=== PATIENT | male | born 1995 | race Caucasian/White ===

== ENCOUNTER 2020-07-14 09:39 | Emergency (ER) | payer OTHER, SELFPAY ==
[2020-07-14] VITALS (9 sets, daily range): BP systolic 109–133; BP diastolic 57–73; PULSE 82–99; RESP 18; TEMP 36.8; O2SAT 97–100; BMI 28.4
--- NOTE | 2020-07-14 10:22 | ED.MALEGU ---
HPI - Male Genitourinary General Chief complaint: Urogenital-Male Stated complaint: abscess right kidney sent for urology Time Seen by Provider: 07/14/20 10:21 Source: patient and EMS Mode of arrival: EMS Limitations: no limitations History of Present Illness HPI Narrative: This is a 24-year-old male comes to the emergency department with complaint of abscess to the right kidney. Patient states he was diagnosed approximately 6 weeks ago. He was seen at [facility]. Patient states that he was having significant pain in the right flank abdomen then he was on IV antibiotics and by his description likely boarding in the emergency department for several days. He states they did not take him to the OR or drainage by IR. Patient was discharged home on oral antibiotics which he states he was taking regularly until he had repeat CT scan 2 or 3 weeks ago. He states that there had been no change in the size and he has become more lax in his compliance with his antibiotic. He felt chilled and diaphoretic overnight. He has had increasing pain over the last 24 hours. He has had occasional intermittent discomfort in the flank right lower quadrant but not as significant as today. Today's pain feels much more similar to his prior discomfort when he was initially hospitalized at the [facility]. He has been having bowel movements he has not appreciated any melena or hematochezia. He has not pursued any dysuria, since urgency or incontinence. Patient denies other medical issues besides migraines he denies any prior surgeries. He states he had redness and felt like he was burning all over after vancomycin in the hospital, possible red man syndome. He states he has 1 other allergy to medication but cannot recall what it is. He did see a urologist at [facility] the last 2-3 weeks after his repeat imaging, he states he had a bladder scan and was supposed to follow-up for a ultrasound in the office. He is unsure of the urologist but thinks it may have Dr. Young. Related Data Home Medications Medication Instructions Recorded Confirmed omeprazole 20 mg PO DAILY 07/14/20 07/14/20 sumatriptan succinate 25 mg PO Q2-4H PRN 07/14/20 07/14/20 Previous Rx's Medication Instructions Recorded meloxicam [Mobic] 7.5 mg PO DAILY PRN #20 tab 07/14/20 Allergies Allergy/AdvReac Type Severity Reaction Status Date / Time vancomycin Allergy Redness of Verified 07/14/20 09:50 Skin Review of Systems Review of Systems ROS Unobtainable: All systems reviewed & are unremarkable except as noted in HPI and below Patient History Medical History (Updated 07/14/20 @ 13:35 by Leda Amaya DO) Renal abscess Social History Smoking Status: Never smoker Smoking Status: Never smoker alcohol intake frequency: a few times a month Alcohol type: beer Substance Use Type: does not use Exam Narrative Exam Narrative: GENERAL: Alert and oriented x three, well-nourished male in mild distress patient appears to not be comfortable. HEENT: Head normocephalic, atraumatic, EOMI, pupils reactive, face symmetric, moist mucous membranes NECK: Supple, full range of motion CARDIOVASCULAR: Regular rate and rhythm without murmurs, rubs or gallops. RESPIRATORY: Breath sounds equal bilaterally, no wheezes rales or rhonchi. ABDOMEN: Soft, moderate right lower quadrant tenderness. Normoactive bowel sounds all 4 quadrants. No guarding or rebound, rigidity, no mass : No CVA tenderness EXTREMITIES: Normal range of motion, no clubbing or edema. Neurovascularly intact NEUROLOGICAL: Cranial nerves II through XII grossly intact. Moving all extremities SKIN: Warm, dry, no petechiae, no rashes or lesions. Initial Vital Signs Initial Vital Signs: Vital Signs Temperature 98.3 F 07/14/20 09:40 Pulse Rate 99 H 07/14/20 09:40 Respiratory Rate 18 07/14/20 09:40 Blood Pressure 133/67 07/14/20 09:40 Pulse Oximetry 99 07/14/20 09:40 Course Orders Ordered: ED Orders 07/14/20 10:55 Blood Culture Stat 07/14/20 11:12 CT abdomen pelvis w con Stat 07/14/20 11:15 Urinalysis and Microscopic Stat Urine Culture Stat Discontinued Medications Sodium Chloride (Normal Saline 0.9%) 1,000 mls @ 1,000 mls/hr IV BOLUS ONE Stop: 07/14/20 11:34 Last Infusion: 07/14/20 12:02 Dose: 0 mls/hr Documented by: Admin: 07/14/20 11:11 Dose: 1,000 mls/hr Documented by: DINO Ketorolac Tromethamine (Ketorolac 60 Mg/2 Ml Vial) 15 mg IV NOW ONE Stop: 07/14/20 10:36 Last Admin: 07/14/20 11:12 Dose: 15 mg Documented by: DINO Ondansetron HCl (Ondansetron 4 Mg/2 Ml Inj) 4 mg IV Q4HR PRN PRN Reason: Nausea And Vomiting Last Admin: 07/14/20 11:12 Dose: 4 mg Documented by: DINO Reevaluation(s) Reevaluation #1: Patient's pain had improved after Toradol. Discussed his findings. Earlier. Patient's CT imaging we reviewed that he has had some improvement in the interval. Urology recommendations. He still has Bactrim and encouraged to take that on a regular basis. He was contacted he was supposed to have his MRI scheduled in November but that was prior to my discussion with Urology group and we discussed they may be able to push this forward. Patient was encouraged to return if he has worsening symptoms or toxic symptoms. Cultures are pending and discussed if blood cultures are positive he would be contacted or if there were signs of resistance in his urine culture. Time: 13:39 Consultations Consultation #1: Urology, Mariana LOVELL. Follow up with urology. They are planning for MRI outpatient. Continue bactrim as prescribed. Watch for toxic symptoms. Can make an appointment to follow up. Time: 13:30 Vital Signs Vital signs: Vital Signs - 8 hr 07/14/20 11:30 07/14/20 12:00 07/14/20 12:30 Pulse Rate 83 82 84 Blood Pressure 119/58 L 109/64 115/70 Pulse Oximetry 97 97 97 07/14/20 13:00 07/14/20 13:30 Pulse Rate 82 86 Blood Pressure 112/68 114/68 Pulse Oximetry 97 98 MDM - Male Genitourinary Lab Data Attestation: I reviewed the patient's lab results. Result diagrams: 07/14/20 09:45 07/14/20 09:45 Labs: Lab Results 07/14/20 07/14/20 07/14/20 Range/Units 09:45 09:45 09:45 WBC 10.9 (4.5-11.0) X10^3/uL RBC 4.64 (4.5-5.9) X10^6/uL Hgb 14.7 (13.5-17.5) g/dL Hct 42.2 (41-53) % MCV 91.0 (80-100) fL MCH 31.7 (26-34) PG MCHC 34.8 (30-36) % RDW 13.8 (11.6-14.8) % Plt Count 239 (150-400) X10^3/uL Neut % (Auto) 69.4 (50-75) % Lymph % (Auto) 17.6 L (25-40) % Butler % (Auto) 12.0 (3-14) % Eos % (Auto) 0.4 L (2-4) % Baso % (Auto) 0.6 (0-2) % Neut # (Auto) 7600 H (6051-7408) /uL Lymph # (Auto) 1900 (7896-6962) /uL Butler # (Auto) 1300 H (0-900) /uL Eos # (Auto) 0 (0-450) /uL Baso # (Auto) 100 (0-100) /uL Sodium 139 (137-145) mmol/L Potassium 4.0 (3.4-5.1) mmol/L Chloride 104 (98-107) mmol/L Carbon Dioxide 25 (22-32) mmol/L BUN 12 (9-20) mg/dL Creatinine 1.04 (0.66-1.25) mg/dL Estimated GFR > 60.0 (>60) mL/min BUN/Creatinine Ratio 11.5 (6-22) Glucose 98 (70-100) mg/dL Lactate 0.9 (0.7-2.1) mmol/L Calcium 9.9 (8.4-10.2) mg/dL Total Bilirubin 0.8 (0.2-1.3) mg/dL AST 28 (17-59) IU/L ALT 21 (<50) IU/L Alkaline Phosphatase 105 (38-126) U/L Total Protein 8.2 (6.3-8.2) g/dL Albumin 4.6 (3.5-5.0) g/dL Globulin 3.6 (1.7-4.1) g/dL Albumin/Globulin Ratio 1.3 (1.0-2.8) Lipase 108 (23-300) U/L Procalcitonin (<0.5) ng/mL Urine Color Urine Appearance Urine pH (4.5-8.0) Ur Specific Marshall (1.000-1.035) Urine Protein (Negative) Urine Glucose (UA) (Negative) g/dL Urine Ketones (NEGATIVE) Urine Occult Blood (Negative) Urine Nitrate (Negative) Urine Bilirubin (NEGATIVE) Urine Urobilinogen (0.2) E.U./dL Ur Leukocyte Esterase (NEGATIVE) Urine RBC (0-5/HPF) Urine WBC (0-5/HPF) Ur Squamous Epith Cells (0-5/HPF) Amorphous Sediment Urine Bacteria (None) Urine Mucus (Negative) Ur Culture Indicated? 07/14/20 07/14/20 Range/Units 09:45 11:15 WBC (4.5-11.0) X10^3/uL RBC (4.5-5.9) X10^6/uL Hgb (13.5-17.5) g/dL Hct (41-53) % MCV (80-100) fL MCH (26-34) PG MCHC (30-36) % RDW (11.6-14.8) % Plt Count (150-400) X10^3/uL Neut % (Auto) (50-75) % Lymph % (Auto) (25-40) % Butler % (Auto) (3-14) % Eos % (Auto) (2-4) % Baso % (Auto) (0-2) % Neut # (Auto) (0363-4221) /uL Lymph # (Auto) (0610-6141) /uL Butler # (Auto) (0-900) /uL Eos # (Auto) (0-450) /uL Baso # (Auto) (0-100) /uL Sodium (137-145) mmol/L Potassium (3.4-5.1) mmol/L Chloride (98-107) mmol/L Carbon Dioxide (22-32) mmol/L BUN (9-20) mg/dL Creatinine (0.66-1.25) mg/dL Estimated GFR (>60) mL/min BUN/Creatinine Ratio (6-22) Glucose (70-100) mg/dL Lactate (0.7-2.1) mmol/L Calcium (8.4-10.2) mg/dL Total Bilirubin (0.2-1.3) mg/dL AST (17-59) IU/L ALT (<50) IU/L Alkaline Phosphatase (38-126) U/L Total Protein (6.3-8.2) g/dL Albumin (3.5-5.0) g/dL Globulin (1.7-4.1) g/dL Albumin/Globulin Ratio (1.0-2.8) Lipase (23-300) U/L Procalcitonin 0.07 (<0.5) ng/mL Urine Color Yellow Urine Appearance Slightly cloudy Urine pH 8.0 (4.5-8.0) Ur Specific Marshall 1.015 (1.000-1.035) Urine Protein Trace H (Negative) Urine Glucose (UA) Trace H (Negative) g/dL Urine Ketones Negative (NEGATIVE) Urine Occult Blood Negative (Negative) Urine Nitrate Negative (Negative) Urine Bilirubin Negative (NEGATIVE) Urine Urobilinogen 1.0 (0.2) E.U./dL Ur Leukocyte Esterase Trace H (NEGATIVE) Urine RBC None seen (0-5/HPF) Urine WBC 1-5/hpf (0-5/HPF) Ur Squamous Epith Cells 0-1 /hpf (0-5/HPF) Amorphous Sediment 1+ Urine Bacteria Occasional (0-1) (None) Urine Mucus 1+ H (Negative) Ur Culture Indicated? Culture not indicate Imaging Data CT scan - abdomen/pelvis: Radiologist's Impression: [address] [id number] Scan ReportSigned Patient: Musa Mcintosh#: [id number]: 1995Acct:[id number]/Sex: 24 / MDate of Service: 07/14/20Loc: EDAccession Number: [id number] Procedure: CT abdomen pelvis w con Ordering Provider: Leda Amaya D.O. PROCEDURE: CT ABDOMEN PELVIS W CON INDICATIONS: hx renal abscess, on oral abx. RLQ/flank pain. TECHNIQUE: After the administration of intravenous contrast, 5 mm thick sections acquired from the diaphragm to the symphysis. 5 mm coronal and sagittal reformats were acquired. For radiation dose reduction, the following was used: automated exposure control, adjustment of mA and/or kV according to patient size. COMPARISON: Outside Film, CT, CT ABDOMEN PELVIS WITH CONTRAST, 06/04/2020, 9:33. Outside Film, CT, CT ABDOMEN PELVIS WITH CONTRAST, 05/22/2020, 14:04. FINDINGS: Image quality: Excellent. ABDOMEN: Lung bases: Lung bases are clear. Heart size is normal. Solid organs: Liver is normal in size and enhancement. Gallbladder appears normal. Biliary system is non dilated. Pancreas enhances normally. Spleen is normal in size and enhancement. No adrenal nodules. Kidneys demonstrate normal size and enhancement, without hydronephrosis, except for abnormal inflammation involving the lower anterior cortex of the right kidney. This area was previously identified as abnormal initially 05/22/20 when a central low liquid containing peripherally enhancing and edematous structure was seen in that area with the liquid content measuring up to 1.5 cm AP and 2.2 cm transverse. This has sequentially diminished in size, with the maximal AP and transverse dimension of the internal liquid content now 1.4 x 1.6 cm. . No abscess formation within the adjacent retroperitoneum is seen but mild edema and thickening of the adjacent fascial planes is present. No right-sided calculus is seen, no urinary tract infection elsewhere is suspected. Peritoneum and bowel: Bowel loops demonstrate normal wall thickness and caliber. No free fluid or air. Nodes and vessels: No retroperitoneal or mesenteric adenopathy by size criteria. Aorta and inferior vena cava are normal in size. Miscellaneous: No ventral hernias. PELVIS: Genitourinary: Bladder wall thickness is normal. Miscellaneous: No inguinal hernias or adenopathy. Bones: No suspicious bony lesions. No vertebral body compression fractures. IMPRESSION: Continued interval reduction in size of a fluid collection within an abscess involving the lower anterior right renal cortex, with a fluid collection now measuring 1.4 x 1.6 cm and without extension of abscess formation into the adjacent retroperitoneum. Continued inflammatory change is present along the fascial layers of the retroperitoneum immediately adjacent. No urinary tract obstruction currently is suspected. Dictated by: Ti Donovan M.D. on 07/14/2020 at 11:39 Approved by: Ti Donovan M.D. on 07/14/2020 at 11:45 MDM Narrative Medical decision making narrative: 24-year-old male comes emergency department with complaint of right abscess the kidney he was seen at [facility] ER and treated with IV antibiotics and then discharged on oral bactrim. Patient did follow up with Dr. Young with urology. Patient was frustrated that on his most recent scans he and had minimal improvement and had been less consistent with his oral antibiotics. He arrived today because he had increased pain in the last 24 hours which has been atypical. He has not had any other sepsis type symptoms. Patient labs are reassuring. Urine culture is pending, blood cultures are also pending. Patient's CT shows some improvement in the size since his last imaging. Discussed with Urology plan for him to follow-up as he is scheduled or have him follow up a little bit sooner patient does state he has plenty of the antibiotics and he is to continue these. Patient was somewhat encourage that there had been improvement in the size and stated that he would take his medications. Return precautions were discussed with the patient. He expresses understanding. Also given a prescription for short course of pain medication which he states he has had in the past. Discharge Plan Departure Patient Disposition: Home Clinical Impression: Renal abscess Activity Restrictions/Additional Instructions: Follow up with urology. Call for a sooner appointment. They are planning to have you schedule an MRI for further evaluation of your abscess. I spoke with your urology team today and they will continue to follow with you. Your CT imaging does show some improvement of your abscess today in the size. Continue your bactrim as prescribed. Take pain medication as prescribed. You may take 1 tablet every 12 hours as needed for pain Please return for fevers greater 100.4 F, rapidly worsening abdominal, flank or back pain, persistent vomiting, lightheadedness or passing out, difficulty with urination or other new or concerning symptoms. Prescriptions: New meloxicam [Mobic] 7.5 mg tablet 7.5 mg PO DAILY PRN (Reason: abdominal pain) Qty: 20 RF: 0 No Action sumatriptan succinate 25 mg Tablet 25 mg PO Q2-4H PRN (Reason: Migraine Headache) RF: 0 omeprazole 20 mg Capsule,Delayed Release(Dr/Ec) 20 mg PO DAILY RF: 0 Referrals: Maribel Young MD [Non-Staff] -
[2020-07-14 10:43] LABS: Add Manual Diff / Slide Review NO; Basophils Absolute Auto 100 /uL (0-100); Basophils Percent Auto 0.6 % (0-2); Eosinophils Absolute Auto 0 /uL (0-450); Eosinophils Percent Auto 0.4 % (2-4); Hematocrit 42.2 % (41-53); Hemoglobin 14.7 g/dL (13.5-17.5); Lymphocytes Absolute Auto 1900 /uL (1100-4500); Lymphocytes Percent Auto 17.6 % (25-40); Mean Corpuscular HGB Conc 34.8 % (30-36); Mean Corpuscular Hemoglobin 31.7 PG (26-34); Monocytes Absolute Auto 1300 /uL (0-900); Neutrophils Absolute Auto 7600 /uL (1500-7000); Neutrophils Percent Auto 69.4 % (50-75); Platelet Count 239 X10^3/uL (150-400); Red Blood Cell Count 4.64 X10^6/uL (4.5-5.9); Red Cell Distribution Width 13.8 % (11.6-14.8); White Blood Cell Count 10.9 X10^3/uL (4.5-11.0)
[2020-07-14 10:49] LABS: Alanine Aminotransferase 21 IU/L (<50); Albumin 4.6 g/dL (3.5-5.0); Albumin Globulin Ratio 1.3 (1.0-2.8); Alkaline Phosphatase 105 U/L (38-126); Aspartate Aminotransferase 28 IU/L (17-59); BUN Creatinine Ratio 11.5 (6-22); Bilirubin Total 0.8 mg/dL (0.2-1.3); Blood Urea Nitrogen 12 mg/dL (9-20); Calcium 9.9 mg/dL (8.4-10.2); Carbon Dioxide 25 mmol/L (22-32); Chloride 104 mmol/L (98-107); Estimated Glomerular Filt Rate > 60.0 mL/min (>60); Globulin 3.6 g/dL (1.7-4.1); Glucose 98 mg/dL (70-100); HEMOLYSIS < 15 (0-50); Lipase 108 U/L (23-300); Sodium 139 mmol/L (137-145); Total Protein 8.2 g/dL (6.3-8.2)
[2020-07-14 10:50] LABS: Lactate (Lactic Acid) 0.9 mmol/L (0.7-2.1)
[2020-07-14] MEDS: SODIUM CHLORIDE 0.9% 1,000 ML 1000 ML IV (11:11)
[2020-07-14] MEDS: KETOROLAC 60 MG/2 ML VIAL 15 MG IV (11:12)
[2020-07-14] MEDS: ONDANSETRON 4 MG/2 ML INJ IV (11:12)
--- NOTE | 2020-07-14 11:12 | DI.CT.S_ITS ---
PROCEDURE: CT ABDOMEN PELVIS W CON INDICATIONS: hx renal abscess, on oral abx. RLQ/flank pain. TECHNIQUE: After the administration of intravenous contrast, 5 mm thick sections acquired from the diaphragm to the symphysis. 5 mm coronal and sagittal reformats were acquired. For radiation dose reduction, the following was used: automated exposure control, adjustment of mA and/or kV according to patient size. COMPARISON: Outside Film, CT, CT ABDOMEN PELVIS WITH CONTRAST, 06/04/2020, 9:33. Outside Film, CT, CT ABDOMEN PELVIS WITH CONTRAST, 05/22/2020, 14:04. FINDINGS: Image quality: Excellent. ABDOMEN: Lung bases: Lung bases are clear. Heart size is normal. Solid organs: Liver is normal in size and enhancement. Gallbladder appears normal. Biliary system is non dilated. Pancreas enhances normally. Spleen is normal in size and enhancement. No adrenal nodules. Kidneys demonstrate normal size and enhancement, without hydronephrosis, except for abnormal inflammation involving the lower anterior cortex of the right kidney. This area was previously identified as abnormal initially 05/22/20 when a central low liquid containing peripherally enhancing and edematous structure was seen in that area with the liquid content measuring up to 1.5 cm AP and 2.2 cm transverse. This has sequentially diminished in size, with the maximal AP and transverse dimension of the internal liquid content now 1.4 x 1.6 cm. . No abscess formation within the adjacent retroperitoneum is seen but mild edema and thickening of the adjacent fascial planes is present. No right-sided calculus is seen, no urinary tract infection elsewhere is suspected. Peritoneum and bowel: Bowel loops demonstrate normal wall thickness and caliber. No free fluid or air. Nodes and vessels: No retroperitoneal or mesenteric adenopathy by size criteria. Aorta and inferior vena cava are normal in size. Miscellaneous: No ventral hernias. PELVIS: Genitourinary: Bladder wall thickness is normal. Miscellaneous: No inguinal hernias or adenopathy. Bones: No suspicious bony lesions. No vertebral body compression fractures. IMPRESSION: Continued interval reduction in size of a fluid collection within an abscess involving the lower anterior right renal cortex, with a fluid collection now measuring 1.4 x 1.6 cm and without extension of abscess formation into the adjacent retroperitoneum. Continued inflammatory change is present along the fascial layers of the retroperitoneum immediately adjacent. No urinary tract obstruction currently is suspected. Dictated by: Ti Donovan M.D. on 07/14/2020 at 11:39 Approved by: Ti Donovan M.D. on 07/14/2020 at 11:45
[2020-07-14 12:01] LABS: Procalcitonin 0.07 ng/mL (<0.5)
[2020-07-14 12:05] LABS: RBC Urine None Seen (0-5/HPF)
[2020-07-14 12:21] LABS: Bilirubin Urine UA NEGATIVE (NEGATIVE); Color Urine UA YELLOW; Glucose Urine UA TRACE g/dL (Negative); Ketones Urine UA NEGATIVE (NEGATIVE); Leukocyte Esterase Urine UA TRACE (NEGATIVE); Nitrite Urine UA NEGATIVE (Negative); Occult Blood Urine UA NEGATIVE (Negative); Protein Urine UA TRACE (Negative); Specific Gravity Urine UA 1.015 (1.000-1.035)
[2020-07-14 13:09] LABS: Amorphous Sediment Urine 1+; Appearance Urine UA Slightly Cloudy; Bacteria Urine Occasional (0-1); Mucus Urine 1+ (Negative); Squamous Epithelial Cell Urine 0-1 /HPF (0-5/HPF); WBC Urine 1-5/HPF (0-5/HPF)
== END 2020-07-14 14:07 | disposition home or self-care (01) ==
PROVIDERS: Emergency Provider Emergency Medicine
DX: N15.1 Renal and perinephric abscess (principal)
CPT/HCPCS: 36415; 74177; 80053; 81001; 83605; 83690; 84145; 85025; 87040; 87086; 96361; 96374; 96375; 99284; J1885; J2405; Q9967